=== PATIENT | male | born 1980 | race Caucasian/White ===

== ENCOUNTER 2022-07-26 13:02 | Inpatient (IN) | payer OTHER ==
[2022-07-26 14:04] VITALS: BMI 18.4
[2022-07-26] MEDS ORDERED: MAG HYDROX/AL HYDROX/SIMETH 30 ML UNIT-DOSE CUP PO PRN (16:12)
[2022-07-26] MEDS ORDERED: IBUPROFEN 400 MG TABLET (FP) PO PRN (16:12)
[2022-07-26] MEDS ORDERED: IBUPROFEN 600 MG TABLET (FP) PO PRN (16:12)
[2022-07-26] MEDS ORDERED: NICOTINE 10 MG CARTRIDGE (INHALER) IH PRN (16:12)
[2022-07-26] MEDS ORDERED: NICOTINE POLACRILEX 4 MG GUM BUC PRN (16:12)
[2022-07-26] MEDS ORDERED: BENZOCAINE/MENTHOL (CHLORASEPTIC ) LOZENGE MM PRN (16:12)
[2022-07-26] MEDS ORDERED: ACETAMINOPHEN 325 MG TABLET (FP) PO PRN ×2 (16:12)
[2022-07-26] MEDS ORDERED: MAGNESIUM CITRATE 300 ML BOTTLE PO PRN (16:12)
[2022-07-26] MEDS ORDERED: MAGNESIUM HYDROX 2400MG/30ML ORAL SUSPENSION 30 ML CUP PO PRN (16:12)
[2022-07-26] MEDS ORDERED: NALOXONE HCL (KLOXXADO) 8 MG SPRAY NS PRN (16:12)
[2022-07-26] MEDS ORDERED: BISMUTH SUBSALICYLATE 524 MG/30 ML PO PRN (16:12)
[2022-07-26] MEDS ORDERED: LOPERAMIDE HCL 2 MG CAPSULE PO PRN (16:12)
[2022-07-26] MEDS ORDERED: DICYCLOMINE HCL 10 MG CAPSULE PO PRN (16:12)
[2022-07-26] MEDS ORDERED: ONDANSETRON *ODT* 4 MG TABLET SL PRN (16:12)
[2022-07-26] MEDS: hydrOXYzine PAMOATE 25 MG CAPSULE (FP) PO PRN (16:49)
[2022-07-26] MEDS: METHOCARBAMOL 500 MG TABLET PO PRN (18:32)
[2022-07-26] MEDS ORDERED: MELATONIN 5 MG TABLETS PO SCH (22:00)
[2022-07-26] MEDS: THIAMINE HCL 100 MG TABLET (FP) PO SCH (22:32)
[2022-07-27] MEDS ORDERED: chlordiazePOXIDE HCL 25 MG CAPSULE PO PRN (08:51)
[2022-07-27] MEDS: PRENATAL VITAMINS W/ FOLIC ACID TABLET (FP) PO SCH (10:38)
[2022-07-27] MEDS: METHOCARBAMOL 500 MG TABLET PO PRN (10:39)
[2022-07-27] MEDS: hydrOXYzine PAMOATE 25 MG CAPSULE (FP) PO PRN (10:39)
[2022-07-27] MEDS: chlordiazePOXIDE HCL 25 MG CAPSULE PO SCH ×3 (10:40→22:24)
[2022-07-27 10:55] LABS: ALBUMIN 3.5 g/dl (3.4-5.0); BLOOD UREA NITROGEN 18.5 mg/dL (7-18); CALCIUM 9.1 mg/dL (8.5-10.1); HEMATOCRIT 41.2 % (35.4-49); HEMOGLOBIN 13.5 GM/dL (11.7-16.9); MCH 27.2 pg (25.7-33.7); MCHC 32.7 g/dl (32.0-35.9); MEAN CELL VOLUME 83.2 fl (80-96); MEAN PLT VOLUME 8.7 fl (7.5-11.1); PLATELET COUNT 292 10^3/uL (134-434); RBC 4.95 M/mm3 (4.00-5.60); RDW 15.8 % (11.9-15.9); WHITE BLOOD COUNT 6.5 K/mm3 (4.0-10.0)
[2022-07-27 10:58] LABS: CREATININE 0.9 mg/dL (0.55-1.3)
[2022-07-27 10:59] LABS: BILIRUBIN,TOTAL 0.3 mg/dL (0.2-1); TOT PROT 6.1 g/dl (6.4-8.2)
[2022-07-27 12:16] LABS: HIV INTERPRETATION NEGATIVE (NEGATIVE)
[2022-07-27] MEDS ORDERED: FLU VACC QS2022-23(6MOS UP)/PF 60 MCG/0.5 ML SYRINGE IM ONE ×2 (12:28→14:00)
[2022-07-27] MEDS: THIAMINE HCL 100 MG TABLET (FP) PO SCH (22:23)
[2022-07-27] MEDS: MELATONIN 5 MG TABLETS PO SCH (22:24)
[2022-07-28] MEDS: chlordiazePOXIDE HCL 25 MG CAPSULE PO SCH ×4 (05:16→22:33)
[2022-07-28] MEDS ORDERED: HALOPERIDOL DECANOATE 100 MG/ML IM ONE (10:00)
[2022-07-28] MEDS: PRENATAL VITAMINS W/ FOLIC ACID TABLET (FP) PO SCH (10:05)
[2022-07-28] MEDS: METHOCARBAMOL 500 MG TABLET PO PRN (10:05)
[2022-07-28] MEDS: THIAMINE HCL 100 MG TABLET (FP) PO SCH (22:33)
[2022-07-28] MEDS: MELATONIN 5 MG TABLETS PO SCH (22:34)
[2022-07-29] MEDS: chlordiazePOXIDE HCL 25 MG CAPSULE PO SCH ×4 (05:35→22:08)
[2022-07-29] MEDS: PRENATAL VITAMINS W/ FOLIC ACID TABLET (FP) PO SCH (10:14)
[2022-07-29] MEDS: METHOCARBAMOL 500 MG TABLET PO PRN ×2 (10:14→17:29)
[2022-07-29] MEDS: THIAMINE HCL 100 MG TABLET (FP) PO SCH (22:08)
[2022-07-29] MEDS: MELATONIN 5 MG TABLETS PO SCH (22:10)
[2022-07-30] MEDS ORDERED: chlordiazePOXIDE HCL 10 MG CAPSULE PO PRN
[2022-07-30] MEDS: chlordiazePOXIDE HCL 10 MG CAPSULE PO SCH ×4 (05:20→22:07)
[2022-07-30] MEDS: PRENATAL VITAMINS W/ FOLIC ACID TABLET (FP) PO SCH (10:09)
[2022-07-30] MEDS: hydrOXYzine PAMOATE 25 MG CAPSULE (FP) PO PRN (10:09)
[2022-07-30] MEDS: METHOCARBAMOL 500 MG TABLET PO PRN (10:09)
[2022-07-30 20:56] VITALS: RESP 18
[2022-07-30] MEDS: THIAMINE HCL 100 MG TABLET (FP) PO SCH (22:07)
[2022-07-30] MEDS: MELATONIN 5 MG TABLETS PO SCH (22:08)
[2022-07-31] MEDS ORDERED: chlordiazePOXIDE HCL 10 MG CAPSULE PO SCH (05:00)
[2022-07-31 06:05] VITALS: BP 102/51; PULSE 62; TEMP 97.3
[2022-08-01] MEDS ORDERED: chlordiazePOXIDE HCL 10 MG CAPSULE PO ONE (05:00)
== END 2022-07-31 09:50 | disposition home or self-care (01) | DRG 774 ==
LOC: YASAS 13:02 → Y6N 17:01
PROVIDERS: ADMIT Allergy & Immunology; ATTEND Surgery
PROC: HZ2ZZZZ Detoxification Services for Substance Abuse Treatment (ICD-10-PCS; principal; 2022-07-26)
DX: F10.230 Alcohol dependence with withdrawal, uncomplicated (principal); F14.20 Cocaine dependence, uncomplicated; F17.210 Nicotine dependence, cigarettes, uncomplicated; F19.282 Other psychoactive substance dependence with psychoactive substance-induced sleep disorder; F19.280 Other psychoactive substance dependence with psychoactive substance-induced anxiety disorder; F31.9 Bipolar disorder, unspecified; Z62.810 Personal history of physical and sexual abuse in childhood; R73.03 Prediabetes; Z86.19 Personal history of other infectious and parasitic diseases; Z59.01 Sheltered homelessness; Z88.8 Allergy status to other drugs, medicaments and biological substances
CPT/HCPCS: 36415; 80053; 85027; 86780; 87389; C9803-CS; G0008; Q2036; U0003; U0005

== ENCOUNTER 2022-09-28 16:16 | Inpatient (IN) | payer OTHER ==
[2022-09-28] MEDS ORDERED: hydrOXYzine PAMOATE 25 MG CAPSULE (FP) PO PRN (17:41)
[2022-09-28] MEDS ORDERED: MAGNESIUM HYDROX 2400MG/30ML ORAL SUSPENSION 30 ML CUP PO PRN (17:41)
[2022-09-28] MEDS ORDERED: LOPERAMIDE HCL 2 MG CAPSULE PO PRN (17:41)
[2022-09-28] MEDS ORDERED: BENZOCAINE/MENTHOL (CHLORASEPTIC ) LOZENGE MM PRN (17:41)
[2022-09-28] MEDS ORDERED: ACETAMINOPHEN 325 MG TABLET (FP) PO PRN (17:41)
[2022-09-28] MEDS ORDERED: P-EPHED 60MG/TRIPROLIDI 2.5MG TABLET PO PRN (17:41)
[2022-09-28] MEDS ORDERED: MAG HYDROX/AL HYDROX/SIMETH 30 ML UNIT-DOSE CUP PO PRN (17:41)
[2022-09-28] MEDS ORDERED: POLYETHYLENE GLYCOL (HEALTHYLAX) 3350 17 GM PACKET PO PRN (17:41)
[2022-09-28] MEDS ORDERED: guaiFENesin 200 MG/10 ML 10 ML UNIT-DOSE CUPS PO PRN (17:41)
[2022-09-28] MEDS: MELATONIN 5 MG TABLETS PO SCH (21:42)
[2022-09-28] MEDS: THIAMINE HCL 100 MG TABLET (FP) PO SCH (21:42)
[2022-09-29] MEDS: PRENATAL VITAMINS W/ FOLIC ACID TABLET (FP) PO SCH (09:42)
[2022-09-29 11:33] LABS: HEMATOCRIT 43.8 % (35.4-49); HEMOGLOBIN 14.1 GM/dL (11.7-16.9); MCH 27.4 pg (25.7-33.7); MCHC 32.2 g/dl (32.0-35.9); MEAN CELL VOLUME 85.1 fl (80-96); MEAN PLT VOLUME 8.8 fl (7.5-11.1); PLATELET COUNT 381 10^3/uL (134-434); RBC 5.15 M/mm3 (4.00-5.60); RDW 15.8 % (11.9-15.9); WHITE BLOOD COUNT 8.4 K/mm3 (4.0-10.0)
[2022-09-29 11:39] LABS: ALBUMIN 3.8 g/dl (3.4-5.0)
[2022-09-29 11:40] LABS: BLOOD UREA NITROGEN 16.6 mg/dL (7-18)
[2022-09-29 11:42] LABS: CREATININE 0.9 mg/dL (0.55-1.3)
[2022-09-29 11:43] LABS: BILIRUBIN,TOTAL 0.3 mg/dL (0.2-1)
[2022-09-29 11:44] LABS: URINE APPEARANCE CLEAR; URINE BILIRUBIN NEGATIVE (NEGATIVE); URINE COLOR YELLOW; URINE GLUCOSE (UA) NEGATIVE (NEGATIVE); URINE KETONE NEGATIVE (NEGATIVE); URINE LEUK ESTERASE NEGATIVE (NEGATIVE); URINE NITRITE NEGATIVE (NEGATIVE); URINE PROTEIN NEGATIVE (NEGATIVE)
[2022-09-29 12:26] LABS: SYPHILIS W/ RPR CONF NON-REACTIVE (NONREACTIVE)
[2022-09-29] MEDS: MELATONIN 5 MG TABLETS PO SCH (21:30)
[2022-09-29] MEDS: OLANZapine 7.5 MG TABLET PO SCH (21:30)
[2022-09-29] MEDS: traZODone HCL 100 MG TABLET (FP) PO SCH (21:31)
[2022-09-29] MEDS: THIAMINE HCL 100 MG TABLET (FP) PO SCH (21:31)
[2022-09-30] MEDS: PRENATAL VITAMINS W/ FOLIC ACID TABLET (FP) PO SCH (09:45)
[2022-09-30] MEDS: THIAMINE HCL 100 MG TABLET (FP) PO SCH (21:20)
[2022-09-30] MEDS: OLANZapine 7.5 MG TABLET PO SCH (21:20)
[2022-09-30] MEDS: MELATONIN 5 MG TABLETS PO SCH (21:20)
[2022-09-30] MEDS: traZODone HCL 100 MG TABLET (FP) PO SCH (21:20)
[2022-10-01] MEDS: PRENATAL VITAMINS W/ FOLIC ACID TABLET (FP) PO SCH (09:35)
[2022-10-01] MEDS: OLANZapine 7.5 MG TABLET PO SCH (21:10)
[2022-10-01] MEDS: THIAMINE HCL 100 MG TABLET (FP) PO SCH (21:10)
[2022-10-01] MEDS: MELATONIN 5 MG TABLETS PO SCH (21:10)
[2022-10-01] MEDS: traZODone HCL 100 MG TABLET (FP) PO SCH (21:11)
[2022-10-02] MEDS: PRENATAL VITAMINS W/ FOLIC ACID TABLET (FP) PO SCH (09:45)
[2022-10-02] MEDS: OLANZapine 7.5 MG TABLET PO SCH (21:23)
[2022-10-02] MEDS: traZODone HCL 100 MG TABLET (FP) PO SCH (21:23)
[2022-10-02] MEDS: MELATONIN 5 MG TABLETS PO SCH (21:23)
[2022-10-02] MEDS: THIAMINE HCL 100 MG TABLET (FP) PO SCH (21:23)
[2022-10-03] MEDS: PRENATAL VITAMINS W/ FOLIC ACID TABLET (FP) PO SCH (09:49)
[2022-10-03] MEDS: OLANZapine 7.5 MG TABLET PO SCH (21:26)
[2022-10-03] MEDS: traZODone HCL 100 MG TABLET (FP) PO SCH (21:27)
[2022-10-03] MEDS: THIAMINE HCL 100 MG TABLET (FP) PO SCH (21:27)
[2022-10-03] MEDS: MELATONIN 5 MG TABLETS PO SCH (21:27)
[2022-10-04] MEDS: PRENATAL VITAMINS W/ FOLIC ACID TABLET (FP) PO SCH (09:38)
[2022-10-04] MEDS: IBUPROFEN 400 MG TABLET (FP) PO PRN ×2 (11:04→21:32)
[2022-10-04] MEDS: MELATONIN 5 MG TABLETS PO SCH (21:31)
[2022-10-04] MEDS: traZODone HCL 100 MG TABLET (FP) PO SCH (21:32)
[2022-10-04] MEDS: THIAMINE HCL 100 MG TABLET (FP) PO SCH (21:32)
[2022-10-04] MEDS: OLANZapine 7.5 MG TABLET PO SCH (21:32)
[2022-10-05] MEDS: PRENATAL VITAMINS W/ FOLIC ACID TABLET (FP) PO SCH (09:42)
[2022-10-05] MEDS: THIAMINE HCL 100 MG TABLET (FP) PO SCH (21:09)
[2022-10-05] MEDS: OLANZapine 7.5 MG TABLET PO SCH (21:09)
[2022-10-05] MEDS: traZODone HCL 100 MG TABLET (FP) PO SCH (21:09)
[2022-10-05] MEDS: MELATONIN 5 MG TABLETS PO SCH (21:09)
[2022-10-06] MEDS: PRENATAL VITAMINS W/ FOLIC ACID TABLET (FP) PO SCH (09:59)
[2022-10-06] MEDS ORDERED: BACLOFEN 10 MG TABLET (FP) PO PRN (10:32)
[2022-10-06] MEDS: GABAPENTIN 300 MG CAPSULE PO SCH ×2 (12:20→21:12)
[2022-10-06] MEDS: traZODone HCL 100 MG TABLET (FP) PO SCH (21:12)
[2022-10-06] MEDS: OLANZapine 7.5 MG TABLET PO SCH (21:12)
[2022-10-06] MEDS: THIAMINE HCL 100 MG TABLET (FP) PO SCH (21:12)
[2022-10-06] MEDS: MELATONIN 5 MG TABLETS PO SCH (21:13)
[2022-10-07] MEDS: GABAPENTIN 300 MG CAPSULE PO SCH ×2 (09:53→21:21)
[2022-10-07] MEDS: PRENATAL VITAMINS W/ FOLIC ACID TABLET (FP) PO SCH (09:53)
[2022-10-07] MEDS: MELATONIN 5 MG TABLETS PO SCH (21:21)
[2022-10-07] MEDS: OLANZapine 7.5 MG TABLET PO SCH (21:21)
[2022-10-07] MEDS: THIAMINE HCL 100 MG TABLET (FP) PO SCH (21:21)
[2022-10-07] MEDS: traZODone HCL 100 MG TABLET (FP) PO SCH (21:21)
[2022-10-08] MEDS: GABAPENTIN 300 MG CAPSULE PO SCH ×2 (09:50→21:21)
[2022-10-08] MEDS: PRENATAL VITAMINS W/ FOLIC ACID TABLET (FP) PO SCH (09:50)
[2022-10-08] MEDS: OLANZapine 7.5 MG TABLET PO SCH (21:21)
[2022-10-08] MEDS: THIAMINE HCL 100 MG TABLET (FP) PO SCH (21:21)
[2022-10-08] MEDS: MELATONIN 5 MG TABLETS PO SCH (21:21)
[2022-10-08] MEDS: traZODone HCL 100 MG TABLET (FP) PO SCH (21:21)
[2022-10-09] MEDS: PRENATAL VITAMINS W/ FOLIC ACID TABLET (FP) PO SCH (09:15)
[2022-10-09] MEDS: GABAPENTIN 300 MG CAPSULE PO SCH ×2 (09:15→21:23)
[2022-10-09] MEDS: THIAMINE HCL 100 MG TABLET (FP) PO SCH (21:23)
[2022-10-09] MEDS: traZODone HCL 100 MG TABLET (FP) PO SCH (21:23)
[2022-10-09] MEDS: OLANZapine 7.5 MG TABLET PO SCH (21:23)
[2022-10-09] MEDS: MELATONIN 5 MG TABLETS PO SCH (21:23)
[2022-10-10] MEDS: GABAPENTIN 300 MG CAPSULE PO SCH ×2 (09:31→21:17)
[2022-10-10] MEDS: PRENATAL VITAMINS W/ FOLIC ACID TABLET (FP) PO SCH (09:31)
[2022-10-10] MEDS: THIAMINE HCL 100 MG TABLET (FP) PO SCH (21:17)
[2022-10-10] MEDS: OLANZapine 7.5 MG TABLET PO SCH (21:17)
[2022-10-10] MEDS: traZODone HCL 100 MG TABLET (FP) PO SCH (21:17)
[2022-10-10] MEDS: MELATONIN 5 MG TABLETS PO SCH (21:17)
[2022-10-11] MEDS: PRENATAL VITAMINS W/ FOLIC ACID TABLET (FP) PO SCH (09:35)
[2022-10-11] MEDS: GABAPENTIN 300 MG CAPSULE PO SCH ×2 (09:35→21:18)
[2022-10-11] MEDS: MELATONIN 5 MG TABLETS PO SCH (21:18)
[2022-10-11] MEDS: OLANZapine 7.5 MG TABLET PO SCH (21:18)
[2022-10-11] MEDS: THIAMINE HCL 100 MG TABLET (FP) PO SCH (21:18)
[2022-10-11] MEDS: traZODone HCL 100 MG TABLET (FP) PO SCH (21:18)
[2022-10-12] MEDS: GABAPENTIN 300 MG CAPSULE PO SCH ×2 (09:53→21:27)
[2022-10-12] MEDS: PRENATAL VITAMINS W/ FOLIC ACID TABLET (FP) PO SCH (09:53)
[2022-10-12] MEDS: IBUPROFEN 400 MG TABLET (FP) PO PRN (13:04)
[2022-10-12] MEDS: MELATONIN 5 MG TABLETS PO SCH (21:27)
[2022-10-12] MEDS: OLANZapine 7.5 MG TABLET PO SCH (21:27)
[2022-10-12] MEDS: traZODone HCL 100 MG TABLET (FP) PO SCH (21:27)
[2022-10-12] MEDS: THIAMINE HCL 100 MG TABLET (FP) PO SCH (21:27)
[2022-10-13] MEDS: PRENATAL VITAMINS W/ FOLIC ACID TABLET (FP) PO SCH (10:44)
[2022-10-13] MEDS: GABAPENTIN 300 MG CAPSULE PO SCH ×2 (10:44→21:19)
[2022-10-13] MEDS: MELATONIN 5 MG TABLETS PO SCH (21:18)
[2022-10-13] MEDS: traZODone HCL 100 MG TABLET (FP) PO SCH (21:19)
[2022-10-13] MEDS: THIAMINE HCL 100 MG TABLET (FP) PO SCH (21:19)
[2022-10-13] MEDS: OLANZapine 7.5 MG TABLET PO SCH (21:19)
[2022-10-14] MEDS: GABAPENTIN 300 MG CAPSULE PO SCH ×2 (09:42→21:18)
[2022-10-14] MEDS: PRENATAL VITAMINS W/ FOLIC ACID TABLET (FP) PO SCH (09:42)
[2022-10-14] MEDS: traZODone HCL 100 MG TABLET (FP) PO SCH (21:18)
[2022-10-14] MEDS: THIAMINE HCL 100 MG TABLET (FP) PO SCH (21:18)
[2022-10-14] MEDS: OLANZapine 7.5 MG TABLET PO SCH (21:18)
[2022-10-14] MEDS: MELATONIN 5 MG TABLETS PO SCH (21:19)
[2022-10-15] MEDS: PRENATAL VITAMINS W/ FOLIC ACID TABLET (FP) PO SCH (09:47)
[2022-10-15] MEDS: GABAPENTIN 300 MG CAPSULE PO SCH ×2 (09:47→21:25)
[2022-10-15] MEDS: MELATONIN 5 MG TABLETS PO SCH (21:25)
[2022-10-15] MEDS: traZODone HCL 100 MG TABLET (FP) PO SCH (21:26)
[2022-10-15] MEDS: THIAMINE HCL 100 MG TABLET (FP) PO SCH (21:26)
[2022-10-15] MEDS: OLANZapine 7.5 MG TABLET PO SCH (21:26)
[2022-10-16] MEDS: PRENATAL VITAMINS W/ FOLIC ACID TABLET (FP) PO SCH (09:17)
[2022-10-16] MEDS: GABAPENTIN 300 MG CAPSULE PO SCH ×2 (09:17→21:15)
[2022-10-16] MEDS: OLANZapine 7.5 MG TABLET PO SCH (21:15)
[2022-10-16] MEDS: traZODone HCL 100 MG TABLET (FP) PO SCH (21:15)
[2022-10-16] MEDS: THIAMINE HCL 100 MG TABLET (FP) PO SCH (21:15)
[2022-10-16] MEDS: MELATONIN 5 MG TABLETS PO SCH (21:15)
[2022-10-17 06:53] VITALS: RESP 16
[2022-10-17] MEDS: PRENATAL VITAMINS W/ FOLIC ACID TABLET (FP) PO SCH (09:09)
[2022-10-17] MEDS: GABAPENTIN 300 MG CAPSULE PO SCH ×2 (09:09→21:20)
[2022-10-17] MEDS: traZODone HCL 100 MG TABLET (FP) PO SCH (21:20)
[2022-10-17] MEDS: OLANZapine 7.5 MG TABLET PO SCH (21:20)
[2022-10-17] MEDS: THIAMINE HCL 100 MG TABLET (FP) PO SCH (21:20)
[2022-10-17] MEDS: MELATONIN 5 MG TABLETS PO SCH (21:20)
[2022-10-18 07:16] VITALS: BP 107/58; PULSE 83; TEMP 97.1
[2022-10-18] MEDS: GABAPENTIN 300 MG CAPSULE PO SCH (09:08)
[2022-10-18] MEDS: PRENATAL VITAMINS W/ FOLIC ACID TABLET (FP) PO SCH (09:08)
== END 2022-10-18 09:43 | disposition home or self-care (01) | DRG 772 ==
LOC: YASAS 16:16 → Y5N 20:38
PROVIDERS: ADMIT Psychiatry & Neurology Pain Medicine; ATTEND Allergy & Immunology
PROC: HZ42ZZZ Group Counseling for Substance Abuse Treatment, Cognitive-Behavioral (ICD-10-PCS; principal; 2022-09-28)
DX: F14.20 Cocaine dependence, uncomplicated (principal); F10.20 Alcohol dependence, uncomplicated; F25.9 Schizoaffective disorder, unspecified; F31.9 Bipolar disorder, unspecified; F41.9 Anxiety disorder, unspecified; G47.00 Insomnia, unspecified; M54.40 Lumbago with sciatica, unspecified side; G89.29 Other chronic pain; R73.03 Prediabetes; Z20.822 Contact with and (suspected) exposure to COVID-19; Z62.810 Personal history of physical and sexual abuse in childhood; Z86.19 Personal history of other infectious and parasitic diseases; Z91.51 Personal history of suicidal behavior
CPT/HCPCS: 36415; 80053; 81003; 85027; 86780; 86803; 87522; C9803-CS; U0003; U0005

== ENCOUNTER 2024-04-20 11:52 | Inpatient (IN) | payer OTHER ==
[2024-04-20 12:16] VITALS: BMI 20.8
[2024-04-20] MEDS ORDERED: NALOXONE (NARCAN) HCL 4 MG/0.1 ML SPRAY NS PRN (13:00)
[2024-04-20] MEDS ORDERED: guaiFENesin 600 MG TABLET.ER (FP) PO PRN (13:00)
[2024-04-20] MEDS ORDERED: IBUPROFEN 400 MG TABLET (FP) PO PRN (13:00)
[2024-04-20] MEDS ORDERED: NALOXONE HCL 0.4 MG/ML VIAL IM PRN (13:00)
[2024-04-20] MEDS ORDERED: BENZONATATE 200 MG CAPSULE PO PRN (13:00)
[2024-04-20] MEDS ORDERED: MAGNESIUM HYDROX 2400MG/30ML ORAL SUSPENSION 30 ML CUP PO PRN (13:00)
[2024-04-20] MEDS ORDERED: P-EPHED 60MG/TRIPROLIDI 2.5MG TABLET PO PRN (13:00)
[2024-04-20] MEDS ORDERED: ACETAMINOPHEN 325 MG TABLET (FP) PO PRN (13:00)
[2024-04-20] MEDS ORDERED: BENZOCAINE/MENTHOL (CHLORASEPTIC ) LOZENGE MM PRN (13:00)
[2024-04-20] MEDS ORDERED: POLYETHYLENE GLYCOL (HEALTHYLAX) 3350 17 GM PACKET PO PRN (13:00)
[2024-04-20] MEDS ORDERED: BISMUTH SUBSALICYLATE 524 MG/30 ML PO PRN (13:00)
[2024-04-20] MEDS ORDERED: DICYCLOMINE HCL 10 MG CAPSULE PO PRN (13:00)
[2024-04-20] MEDS ORDERED: cloNIDine HCL 0.1 MG TABLET PO PRN (13:24)
[2024-04-20] MEDS ORDERED: ASPIRIN 81 MG CHEWABLE TABLETS ONE (16:47)
[2024-04-20] MEDS: ASPIRIN 81 MG CHEWABLE TABLETS PO ONE (16:59)
[2024-04-20] MEDS: methaDONE HCL 10 MG TABLET (FOR DETOX USE ONLY) PO ONE (17:15)
[2024-04-20] MEDS: MAG HYDROX/AL HYDROX/SIMETH 30 ML UNIT-DOSE CUP PO PRN (19:23)
[2024-04-20] MEDS: THIAMINE 100 MG TABLET PO SCH (22:10)
[2024-04-20] MEDS: MELATONIN 5 MG TABLETS PO SCH (22:10)
[2024-04-20] MEDS: METHOCARBAMOL 500 MG TABLET PO PRN (22:11)
[2024-04-21] MEDS: diazePAM 5 MG TABLET PO PRN (01:05)
[2024-04-21] MEDS: IBUPROFEN 600 MG TABLET (FP) PO PRN (06:19)
[2024-04-21] MEDS: PRENATAL VITAMINS W/ FOLIC ACID TABLET (FP) PO SCH (09:53)
[2024-04-21 11:51] LABS: CHLORIDE 107 mmol/L (98-107); POTASSIUM 4.4 mmol/L (3.5-5.1); SODIUM 139 mmol/L (136-145)
[2024-04-21 11:52] LABS: HEMATOCRIT 38.1 % (35.4-49); HEMOGLOBIN 12.9 GM/dL (11.7-16.9); MCH 28.7 pg (25.7-33.7); MCHC 33.7 g/dl (32.0-35.9); MEAN CELL VOLUME 85.1 fl (80-96); MEAN PLT VOLUME 8.8 fl (7.5-11.1); PLATELET COUNT 299 10^3/uL (134-434); RBC 4.48 M/mm3 (4.00-5.60); RDW 15.1 % (11.9-15.9); WHITE BLOOD COUNT 10.9 K/mm3 (4.0-10.0)
[2024-04-21 11:54] LABS: CALCIUM 8.7 mg/dL (8.5-10.1)
[2024-04-21 11:55] LABS: ALBUMIN 3.4 g/dl (3.4-5.0); ANION GAP 3 mmol/L (4-13); BLOOD UREA NITROGEN 14.2 mg/dL (7-18); CO2 28 mmol/L (21-32); GLUCOSE,RANDOM 72 mg/dL (74-106)
[2024-04-21 11:58] LABS: CREATININE 0.9 mg/dL (0.55-1.3); SGOT/AST 20 U/L (15-37); SGPT/ALT 24 U/L (13-61)
[2024-04-21 12:00] LABS: BILIRUBIN,TOTAL 0.4 mg/dL (0.2-1); TOT PROT 5.9 g/dl (6.4-8.2)
[2024-04-21 12:01] LABS: ALK PHOS 61 U/L (45-117)
[2024-04-21] MEDS: ONDANSETRON *ODT* 4 MG TABLET SL PRN (17:19)
[2024-04-21] MEDS: traZODone HCL 100 MG TABLET (FP) PO SCH (21:16)
[2024-04-21] MEDS: OLANZapine 10 MG TABLET PO SCH (21:16)
[2024-04-22] MEDS: methaDONE HCL 10 MG TABLET (FOR DETOX USE ONLY) PO ONE (09:32)
[2024-04-22] MEDS: GABAPENTIN 300 MG CAPSULE PO SCH (22:08)
[2024-04-23] MEDS: LOPERAMIDE HCL 2 MG CAPSULE PO PRN (14:32)
[2024-04-24] MEDS: methaDONE HCL 10 MG TABLET (FOR DETOX USE ONLY) PO ONE (09:49)
[2024-04-24 21:09] VITALS: RESP 16
[2024-04-25 09:30] VITALS: BP 108/68; PULSE 64; TEMP 97.8
== END 2024-04-25 11:12 | disposition home or self-care (01) | DRG 773 ==
LOC: YASAS 11:52 → Y6N 16:28
PROVIDERS: ADMIT Allergy & Immunology; ATTEND Surgery
PROC: HZ2ZZZZ Detoxification Services for Substance Abuse Treatment (ICD-10-PCS; principal; 2024-04-20)
DX: F11.23 Opioid dependence with withdrawal (principal); F14.20 Cocaine dependence, uncomplicated; F25.1 Schizoaffective disorder, depressive type; F19.282 Other psychoactive substance dependence with psychoactive substance-induced sleep disorder; B18.2 Chronic viral hepatitis C; M54.50 Low back pain, unspecified; G89.29 Other chronic pain; Z86.19 Personal history of other infectious and parasitic diseases
CPT/HCPCS: 36415; 80053; 80305; 80307; 84484; 85027; 86780; 93005; 93010; Q0162

== ENCOUNTER 2024-09-04 11:40 | Inpatient (IN) | payer OTHER ==
[2024-09-04 12:28] VITALS: BMI 19.1
[2024-09-04] MEDS ORDERED: guaiFENesin 600 MG TABLET.ER (FP) PO PRN (13:11)
[2024-09-04] MEDS ORDERED: BENZOCAINE/MENTHOL (CHLORASEPTIC ) LOZENGE MM PRN (13:11)
[2024-09-04] MEDS ORDERED: NALOXONE (NARCAN) HCL 4 MG/0.1 ML SPRAY NS PRN (13:11)
[2024-09-04] MEDS ORDERED: POLYETHYLENE GLYCOL (HEALTHYLAX) 3350 17 GM PACKET PO PRN (13:11)
[2024-09-04] MEDS ORDERED: DICYCLOMINE HCL 10 MG CAPSULE PO PRN (13:11)
[2024-09-04] MEDS ORDERED: ACETAMINOPHEN 325 MG TABLET (FP) PO PRN (13:11)
[2024-09-04] MEDS ORDERED: LOPERAMIDE HCL 2 MG CAPSULE PO PRN (13:11)
[2024-09-04] MEDS ORDERED: BENZONATATE 200 MG CAPSULE PO PRN (13:11)
[2024-09-04] MEDS ORDERED: MAGNESIUM HYDROX 2400MG/30ML ORAL SUSPENSION 30 ML CUP PO PRN (13:11)
[2024-09-04] MEDS ORDERED: chlordiazePOXIDE HCL 25 MG CAPSULE PO PRN (13:11)
[2024-09-04] MEDS ORDERED: BISMUTH SUBSALICYLATE 262 MG/15 ML BTL PO PRN (13:11)
[2024-09-04] MEDS ORDERED: MAG HYDROX/AL HYDROX/SIMETH 30 ML UNIT-DOSE CUP PO PRN (13:11)
[2024-09-04] MEDS: PRENATAL VITAMINS W/ FOLIC ACID TABLET (FP) PO SCH (13:29)
[2024-09-04] MEDS ORDERED: ONDANSETRON *ODT* 4 MG TABLET ONE (13:30)
[2024-09-04] MEDS: ONDANSETRON *ODT* 4 MG TABLET SL PRN (13:35)
[2024-09-04] MEDS: chlordiazePOXIDE HCL 25 MG CAPSULE PO SCH (17:38)
[2024-09-04] MEDS: MELATONIN 5 MG TABLETS PO SCH (22:33)
[2024-09-04] MEDS: THIAMINE 100 MG TABLET PO SCH (22:33)
[2024-09-05 10:18] LABS: HEMATOCRIT 40.4 % (35.4-49); HEMOGLOBIN 13.2 GM/dL (11.7-16.9); MCH 27.7 pg (25.7-33.7); MCHC 32.7 g/dl (32.0-35.9); MEAN CELL VOLUME 84.7 fl (80-96); MEAN PLT VOLUME 8.7 fl (7.5-11.1); PLATELET COUNT 349 10^3/uL (134-434); RBC 4.77 M/mm3 (4.00-5.60); RDW 15.1 % (11.9-15.9); WHITE BLOOD COUNT 6.9 K/mm3 (4.0-10.0)
[2024-09-05] MEDS: IBUPROFEN 600 MG TABLET (FP) PO PRN (10:22)
[2024-09-05 10:25] LABS: POTASSIUM 4.1 mmol/L (3.5-5.1)
[2024-09-05 10:27] LABS: CALCIUM 8.7 mg/dL (8.5-10.1)
[2024-09-05 10:28] LABS: ALBUMIN 3.6 g/dl (3.4-5.0); BLOOD UREA NITROGEN 17.6 mg/dL (7-18)
[2024-09-05 10:31] LABS: CREATININE 1.1 mg/dL (0.55-1.3)
[2024-09-05 10:32] LABS: BILIRUBIN,TOTAL 0.2 mg/dL (0.2-1)
[2024-09-05 10:33] LABS: TOT PROT 6.3 g/dl (6.4-8.2)
[2024-09-05] MEDS: FLU VACCINE (FLULAVAL) PF 45 MCG/0.5 ML SYRINGE 2024-2025 IM ONE (12:37)
[2024-09-05] MEDS: traZODone HCL 100 MG TABLET (FP) PO SCH (22:07)
[2024-09-05] MEDS: OLANZapine 10 MG TABLET PO SCH (22:09)
[2024-09-06] MEDS: chlordiazePOXIDE HCL 25 MG CAPSULE PO SCH (05:22)
[2024-09-06] MEDS: IBUPROFEN 400 MG TABLET (FP) PO PRN (10:15)
[2024-09-06] MEDS: METHOCARBAMOL 500 MG TABLET PO PRN (14:26)
[2024-09-07] MEDS ORDERED: chlordiazePOXIDE HCL 10 MG CAPSULE PO PRN
[2024-09-07] MEDS: chlordiazePOXIDE HCL 10 MG CAPSULE PO SCH (05:00)
[2024-09-07] MEDS ORDERED: FLUTICASONE PROP 0.05% 16 GM NASAL SPRAY NS PRN (19:40)
[2024-09-07] MEDS: P-EPHED 60MG/TRIPROLIDI 2.5MG TABLET PO PRN (20:56)
[2024-09-08] MEDS: chlordiazePOXIDE HCL 10 MG CAPSULE PO SCH (05:58)
[2024-09-08] MEDS: hydrOXYzine PAMOATE 25 MG CAPSULE (FP) PO PRN (09:30)
[2024-09-08 17:25] VITALS: BP 128/68; PULSE 118; RESP 16; TEMP 97.7
[2024-09-08] MEDS: NALOXONE (NYS OPIOID OVERDOSE PROGRAM) 4 MG/0.1 ML SPRAY NS SCH (18:19)
[2024-09-09] MEDS ORDERED: chlordiazePOXIDE HCL 10 MG CAPSULE PO ONE (05:00)
== END 2024-09-08 17:58 | disposition home or self-care (01) | DRG 774 ==
LOC: YASAS 11:40 → Y6N 13:43
PROVIDERS: ADMIT Allergy & Immunology; ATTEND Surgery
PROC: HZ2ZZZZ Detoxification Services for Substance Abuse Treatment (ICD-10-PCS; principal; 2024-09-04)
DX: F10.230 Alcohol dependence with withdrawal, uncomplicated (principal); F14.20 Cocaine dependence, uncomplicated; F17.290 Nicotine dependence, other tobacco product, uncomplicated; F25.1 Schizoaffective disorder, depressive type; F31.9 Bipolar disorder, unspecified; F19.280 Other psychoactive substance dependence with psychoactive substance-induced anxiety disorder; F19.282 Other psychoactive substance dependence with psychoactive substance-induced sleep disorder; M54.50 Low back pain, unspecified; G89.29 Other chronic pain; R63.6 Underweight; Z68.1 Body mass index [BMI] 19.9 or less, adult; Z62.810 Personal history of physical and sexual abuse in childhood; Z86.19 Personal history of other infectious and parasitic diseases
CPT/HCPCS: 36415; 80053; 80305; 80307; 83036; 85027; 86780; 90656; 93005; 93010; G0008; Q0162